=== PATIENT | male | born 1955 | race Caucasian/White ===

== ENCOUNTER → 2017-07-03 | Outpatient (CLI) | payer OTHER | END | disposition home or self-care (01) | LOC: PCVCCLINIC 12:56 | DX: I25.810 Atherosclerosis of coronary artery bypass graft(s) without angina pectoris (principal); E78.00 Pure hypercholesterolemia, unspecified; I10 Essential (primary) hypertension; R94.31 Abnormal electrocardiogram [ECG] [EKG]; Z87.891 Personal history of nicotine dependence; Z79.899 Other long term (current) drug therapy; Z79.82 Long term (current) use of aspirin | CPT/HCPCS: 80061; 93005; G0463 ==

== ENCOUNTER → 2018-05-08 | Outpatient (CLI) | payer OTHER | END | disposition home or self-care (01) | LOC: PCVCCLINIC 14:32 | PROVIDERS: ATTEND Internal Medicine Cardiovascular Disease | DX: I25.10 Atherosclerotic heart disease of native coronary artery without angina pectoris (principal); I10 Essential (primary) hypertension; E78.00 Pure hypercholesterolemia, unspecified; I65.23 Occlusion and stenosis of bilateral carotid arteries; E11.9 Type 2 diabetes mellitus without complications; K21.9 Gastro-esophageal reflux disease without esophagitis; E78.5 Hyperlipidemia, unspecified; Z87.891 Personal history of nicotine dependence; Z79.82 Long term (current) use of aspirin | CPT/HCPCS: 80061; 93005; G0463 ==

== ENCOUNTER → 2018-12-22 | Outpatient (CLI) | payer OTHER | END | disposition home or self-care (01) | LOC: PCVCCLINIC 10:20 | PROVIDERS: ATTEND Internal Medicine Cardiovascular Disease | DX: I25.10 Atherosclerotic heart disease of native coronary artery without angina pectoris (principal); E78.00 Pure hypercholesterolemia, unspecified; I10 Essential (primary) hypertension; I65.23 Occlusion and stenosis of bilateral carotid arteries; E11.9 Type 2 diabetes mellitus without complications; K21.9 Gastro-esophageal reflux disease without esophagitis; Z79.82 Long term (current) use of aspirin | CPT/HCPCS: 36415; 80061; 93005; G0463 ==

== ENCOUNTER → 2019-05-07 | Outpatient (CLI) | payer OTHER ==
--- NOTE | 2019-05-07 14:50 | PCVCIMAG ---
APPROVED REPORT Study performed: 05/07/2019 11:44:39 Exam: Stress Echocardiogram Indication: CAD s/p CABG, chest pain with exertion Patient Location: Echo lab Stress Nurse: Saira Salguero RN Room #: 2 Status: routine Ht: 5 ft 7 in HR: 83 bpm BP: 126/72 mmHg Rhythm: NSR Medical History Medical History: CAD s/p CABG, Diabetes, HTN, HTN Cardiac Risk Factors: HTN, Hyperlipidemia, DM Previous Cardiac Procedures: CABG,PCI Pretest Chest Pain Characteristics: No chest pain Exercise History: Sedentary Procedure The patient underwent an Exercise Stress Test using the [employer] Protocol. Blood pressure, heart rate, and EKG were monitored. An Echocardiogram was performed by nuclear chemistry technician in four stages in quad fashion. At peak stress, four selected images were obtained and placed side by side with resting images for comparison. Stress Test Details Stress Test: Exercise stress testing was performed using a Forest protocol. HR Resting HR: 83 bpmMax Heart Rate (APMHR): 156 bpm Max HR Achieved: 160 bpmTarget HR (85% APMHR): 132 bpm % of APMHR: 102 Recovery HR: 106 bpm HR response to stress: Accelerated HR response to stress BP Resting BP: 126/72 mmHg Max BP: 180/78 mmHg Recovery BP: 142/78 mmHg BP response to stress: Normal blood pressure response to stress. ECG Resting ECG: Sinus Rhythm, nonspecific ST-T abnormalities Stress ECG: Inferior NJ pattern ST Change: Strongly positive Maximum ST Deviation: -3.8 mm Arrhythmia: Rare PVC,PAC Recovery ECG: ST depression, Inferior NJ pattern Recovery ST Change: Ischemic Recovery ST Deviation: -2.70 mm Recovery Arrhythmia: None Clinical Reason for Termination: Chest pain/Anginal equivalent,leg pain Stress Symptoms: Chest pain, Dyspnea, Leg Fatigue Exercise duration: 4 min 18 sec Highest Stage Achieved: Stage 2: 2.5 mph at 12% grade. Exercise capacity: 7 METs Overall Exercise Capacity for Age: Poor Scale: Sedentary Angina Score: Exercise-Limiting Symptoms resolved during recovery. Stress ECG Conclusion Mcconnell Treadmill Score is 15.0 which is Low risk. Pre-Stress Echo The resting Echocardiogram showed normal left ventricular contractility with an estimated Ejection Fraction of about 55-60%. The resting Echocardiogram demonstrated wall motion abnormality in the septum as seen with CABG . Post-Stress Echo The stress Echocardiogram showed abnormal left ventricular contractility with an estimated Ejection Fraction of about 45-50%. The stress Echocardiogram demonstrated wall motion abnormality in the inferior wall and distal septal wall . Conclusion Clinical Response: Ischemic Exercise Capacity: Below Average Stress ECG Response: Ischemic Stress Echo Images: Ischemic Positive stress echo. The test was limited by onset of chest pain and leg pain and fatigue. Compared to the prior study dated , segmental wall motion abnormalities are seen in the inferior wall,distal septum and apex. <Conclusion> Positive stress echo. The test was limited by onset of chest pain and leg pain and fatigue.
== END | disposition home or self-care (01) ==
LOC: PCVCIMAG 11:24
PROVIDERS: ATTEND Internal Medicine Cardiovascular Disease
DX: E78.00 Pure hypercholesterolemia, unspecified (principal); I10 Essential (primary) hypertension; I25.708 Atherosclerosis of coronary artery bypass graft(s), unspecified, with other forms of angina pectoris; I65.23 Occlusion and stenosis of bilateral carotid arteries; E11.9 Type 2 diabetes mellitus without complications; K21.9 Gastro-esophageal reflux disease without esophagitis; Z95.1 Presence of aortocoronary bypass graft; Z83.3 Family history of diabetes mellitus; Z82.49 Family history of ischemic heart disease and other diseases of the circulatory system; Z87.891 Personal history of nicotine dependence
CPT/HCPCS: 36415; 80061; 93005; 93325; 93351; G0463